=== PATIENT | female | born 1945 | race African-American/Black ===

== ENCOUNTER 2016-11-17 22:40 | Emergency (ER) | payer SELFPAY ==
[~2016-11-17] VITALS: Ht 157.5 cm; Wt 64.0 kg
[2016-11-18] MEDS ORDERED: ACETAMINOPHEN 325MG TABLET PO STA (00:53)
[2016-11-18 01:45] LABS: BASOPHILS % 0.7 % (0.0-2.0); EOSINOPHILS % 2.2 % (0.0-5.0); HEMATOCRIT. 35.4 % (36.0-48.0); HEMOGLOBIN. 11.9 g/dL (12.0-16.0); LYMPHOCYTES % 32.4 % (20.0-50.0); MEAN CORPUSCULAR HEMOGLOBIN 27.1 pg (28.0-32.0); MEAN CORPUSCULAR VOLUME 80.6 fL (81.0-99.0); MONOCYTES % 6.7 % (2.0-8.0); PLATELET 301 x1000/uL (130-400); RED CELL DISTRIBUTION WIDTH 17.2 % (11.6-14.6)
[2016-11-18 01:47] LABS: CHLORIDE 99 mEq/L (98-107)
[2016-11-18 01:53] LABS: CARBON DIOXIDE 30 mEq/L (21-32)
[2016-11-18 01:55] LABS: ETHANOL BLOOD < 10 mg/dL
[2016-11-18] MEDS ORDERED: LEVOFLOXACIN 250MG TABLET PO ONE (02:00)
[2016-11-18 06:40] LABS: *AMPHETAMINES SCREEN URINE NEGATIVE (NEGATIVE); *BARBITURATES SCREEN URINE NEGATIVE (NEGATIVE); *BENZODIAZEPINES SCREEN URINE NEGATIVE (NEGATIVE); *COCAINE SCREEN URINE NEGATIVE (NEGATIVE); CANNABINOID URINE SCREEN NEGATIVE (NEGATIVE); METHADONE URINE SCREEN NEGATIVE (NEGATIVE); OPIATES URINE SCREEN NEGATIVE (NEGATIVE); PHENCYCLIDINE URINE SCREEN NEGATIVE (NEGATIVE)
[2016-11-19 08:25] VITALS: BP 128/56
== END 2016-11-19 09:15 | disposition home or self-care (01) ==
LOC: ER 22:40 → CANBEDREQ 11-19 03:34 → ER 11-19 09:15
DX: R05 Cough (principal); R09.89 Other specified symptoms and signs involving the circulatory and respiratory systems; Z59.0 Homelessness; Z75.1 Person awaiting admission to adequate facility elsewhere
CPT/HCPCS: 36415; 71010; 80048; 80305; 80307; 80329; 85025; 99285; G0482; Z7610